=== PATIENT | female | born 1980 | race Caucasian/White ===

== ENCOUNTER 2017-06-03 22:10 | Inpatient (IN) | payer OTHER ==
[~2017-06-03] VITALS: Ht 157.5 cm; Wt 66.2 kg
--- NOTE | ~2017-06-03 | PA ---
Unit #: [id number] #: [id number] Patient: MILTON GONZALEZ [id number] [place] [address] [id number] MR#: [id number] NAME: MILTON GONZALEZ ROOM: P211 Age: 36 Sex: F Admission Date: 06/04/2017 : 1980 Date of Assessment: 06/04/2017 Attending Physician: Gt Brooks M.D. Admitting Physician: Gt Brooks M.D. Primary Care Physician: Primary Care Physician No PSYCHIATRIC ASSESSMENT INFORMANTS The patient reliability, fair informant and chart reliability, good. CHIEF COMPLAINT Alcohol abuse and depression. HISTORY OF PRESENT ILLNESS Ms. Diego is a 36-year-old female, seen on , presented with the above-mentioned complaint. The patient reported feeling sad, depressed, needing help with the alcohol withdrawals. The patient reported wanting help for detox. Reports drinking at least a pint of Tequila in the past 6 to 9 months. The patient denied any suicidal or homicidal ideation or any psychotic symptom. Reported feeling sad, depressed, and anxious. The patient reported currently withdrawal symptom. Scored 18 on CIWA. The patient reports not eating, not sleeping. Reports takes quarter a tablet of Suboxone a day for the past opioid addiction. The patient needed inpatient admission at this time for psychiatric stabilization. The patient reported tobacco use, age of onset 13; alcohol, age of onset 36; and opioid, age of onset 26. The patient reported legal problem, health problem, withdrawal symptom, children's well-being due to alcohol abuse, history of blackout, hepatitis. No history of IV drug use. Currently, reporting depressed mood, nausea, headache, irritability, nervousness, poor appetite, sleep problem, and tremors. PAST PSYCHIATRIC HISTORY Remarkable for history of inpatient detox on 03/02/2017 at [facility]. FAMILY HISTORY AND SOCIAL HISTORY The patient has three sons, good support system. No history of abuse. Legal charges including DUI, thefts, and shoplifting. MEDICAL HISTORY Remarkable for hepatitis C and asthma. Musculoskeletal; muscle strength and tone, no atrophy or abnormal movement. Gait normal. MEDICATION HISTORY Suboxone quarter tablet in the morning. ALLERGIES No known drug allergies. SUBSTANCE ABUSE HISTORY Please see above. Unit #: [id number] #: [id number] Patient: MILTON GOZNALEZ REVIEW OF SYSTEMS HEENT: Eyes, clear. Ears, nose, mouth, and throat; clear. CARDIOVASCULAR: Unremarkable. RESPIRATORY: Unremarkable. GI: Unremarkable. : Unremarkable. SKIN: Unremarkable. LYMPH NODE: Unremarkable. NEUROLOGIC: Unremarkable. ENDOCRINE: Unremarkable. HEMATOLOGIC: Unremarkable. ALLERGIC/IMMUNOLOGIC: Unremarkable. MUSCULOSKELETAL: Muscle strength and tone, no atrophy or abnormal movement. Gait normal. MENTAL STATUS EXAMINATION CONSTITUTIONAL: Measurement of vital signs; temperature 98.7, heart rate 89, respiratory rate 20, and blood pressure 142/95. Height 5 feet 2 inches and weight 146 pounds. GENERAL APPEARANCE: The patient dressed casually. The patient did not show any facial deformity. MUSCULOSKELETAL: Please see above. PSYCHIATRIC EXAMINATION Description of speech; regular rate, normal volume, normal articulation, and coherent. Description of thought process, goal directed. Description of association, intact. Description of abnormal psychotic thinking; the patient denied any hallucinations or delusions, but sad and depressed. Description of the patient's judgment: Concerning everyday activity, poor. Social situation, poor. Concerning psychiatric condition, poor. Complete mental status examination; oriented in time, place, and person. Recent and remote memory, fair. Attention span and concentration, fair. Language, able to name object and repeat phrases. Fund of knowledge, aware of current event and passive vocabulary intact. Mood and affect, sad and dysphoric. Insight and judgment, fair to poor. ASSETS AND LIABILITIES Assets, the patient is articulate and able to take care of her ADL. Liability, history of depression and substance abuse. ADMITTING DIAGNOSES Psychiatric: Alcohol use disorder, severe, F10.20 and major depressive disorder, recurrent, severe, F33.2. Secondary diagnosis: Deferred. Medical diagnoses: Hepatitis C and asthma. Stressors: Psychosocial stressors. PSYCHIATRIC PLAN AND TREATMENT GOAL AND DISCHARGE PLAN 1. Advised to admit the patient on the inpatient unit. Provide safe, supportive, and structured environment. 2. Ordered labs; CBC, CMP, UA, and UDS. 3. Detox protocol and detox monitoring. Started with CIWA protocol and COWS protocol. Advised to discontinue Suboxone. The patient to attend Unit #: [id number] #: [id number] Patient: MILTON GONZALEZ all the programing, group therapy, individual therapy, and chemical dependency group. Treatment goal to attain euthymic mood, gain insight into her problem, and learn coping skills. DISCHARGE PLAN Plan to stabilize the patient and consider followup in outpatient program. ESTIMATED LENGTH OF STAY 3 to 5 days. Dictated by... Gt Brooks M.D. MYRTLE/bautista TD: 06/04/2017 19:09 JOB #: [id number] PSYCHIATRIC ASSESSMENT Page 1 of 1 X Gt Brooks MD X PSYCHIATRIC ASSESSMENT
--- NOTE | ~2017-06-03 | DS ---
Unit #: [id number] #: [id number] Patient: MILTON GONZALEZ [id number] [facility] [address] [place] [address] [id number] MR#: [id number] NAME: MILTON GONZALEZ ROOM: [facility] Age: 36 Sex: F Admission Date: 06/04/2017 : 1980 Discharge Date: 06/06/2017 Attending Physician: Gt Brooks M.D. Primary Care Physician: Primary Care Physician No DISCHARGE SUMMARY REASON FOR ADMISSION Alcohol detox and depression. DIAGNOSTIC STUDIES LABORATORY RESULTS: Unremarkable. HOSPITAL COURSE The patient was admitted to inpatient unit on 06/04/2017 and discharged on 06/06/2017. The patient was treated on the inpatient unit with group therapy and individual therapy. The patient was responsive to treatment. Subsequently, the patient was discharged with a plan to follow up in outpatient program. DISCHARGE MEDICATIONS None. DISCHARGE DIAGNOSES Psychiatric: Alcohol use disorder, severe, F10.20; major depressive disorder, recurrent, severe, F33.2. Secondary diagnosis: Deferred. Medical diagnosis: Hepatitis C and asthma. Stressors: Psychosocial stressors. DISCHARGE INSTRUCTIONS The patient to follow up in outpatient clinic as per social media developer. CONDITION ON DISCHARGE The patient was pleasant and cooperative. Denied any psychotic symptom or any suicidal ideation. PROGNOSIS Guarded. DIET AND ACTIVITY As tolerated. Dictated by... Gt Brooks M.D. Unit #: [id number] #: [id number] Patient: MILTON GONZALEZ SZC/modl TD: 06/08/2017 11:05 JOB #: [id number] DISCHARGE SUMMARY Page 1 of 1 X Gt Brooks MD X DISCHARGE SUMMARY
--- NOTE | ~2017-06-03 | HP ---
Unit #: [id number] #: [id number] Patient: BRANDIE GONZALEZ [id number] [place] [address] [id number] MR#: [id number] NAME: BRANDIE GONZALEZ ROOM: P211 Age: 36 Sex: F Admission Date: 06/04/2017 : 1980 Attending Physician: Gt Brooks M.D. Admitting Physician: Gt Brooks M.D. Primary Care Physician: Primary Care Physician No HISTORY AND PHYSICAL HISTORY OF PRESENT ILLNESS Brandie is a 36 year old admitted to [address] [place] [address] because of her abuse of alcohol. PAST MEDICAL HISTORY 1. Long history of alcohol abuse. 2. Hepatitis C. 3. Asthma. PAST SURGICAL HISTORY 1. Left hip. 2. x3. ALLERGIES No known drug allergies. SOCIAL HISTORY Smokes 1 pack per day. Drinks at least a pint on a daily basis. Admits to a history of opioid abuse. She has been clean for 3 years and has been enrolled and on good terms with a Suboxone clinic for the past 2 years. FAMILY HISTORY Medically noncontributory. REVIEW OF SYSTEMS CONSTITUTIONAL: No fever or chills. HEENT: Denies any sore throat, ear pain or runny nose. CARDIOVASCULAR: Denies chest pain, irregular heart rhythm or palpitations. CHEST: Denies shortness of breath or cough. No hemoptysis. GASTROINTESTINAL: Denies nausea, vomiting, diarrhea or chronic constipation. ENDOCRINE: Denies history of increased thirst or urination. No recent significant weight loss or gain. GENITOURINARY: Denies dysuria, frequency, or hematuria. SKIN: Denies any rashes. HEMATOLOGIC: Denies history of increased bleeding or bruising. MUSCULOSKELETAL: Denies any hot, swollen joints. No generalized muscle pain. NEUROLOGIC: Denies problems with vision or speech. No frequent, severe headaches. No numbness, tingling or weakness in any extremities. Denies loss of bladder or bowel control. CURRENT MEDICATIONS Unit #: [id number] #: [id number] Patient: BRANDIE GONZALEZ 1. Detox protocol. 2. Celexa 20 mg daily. PHYSICAL EXAMINATION GENERAL: Alert, well-nourished, in no apparent distress. VITAL SIGNS: Blood pressure 142/94, heart rate 88, respirations 16, temperature 98.6. WEIGHT: 146. HEIGHT: 5 feet 2 inches. SKIN: Warm and dry without rash or lesion. HEENT: Normocephalic. TMs not viewed. Oral and nasal passages clear. Conjunctivae clear. PERRLA. EOMs intact. NECK: Supple without lymphadenopathy or thyromegaly. HEART: Regular rate and rhythm without murmur. LUNGS: Clear. ABDOMEN: Soft, nontender. : Not done. EXTREMITIES: No evidence of cyanosis, clubbing or edema. Moves all without focal deficit. NEUROLOGICAL: Grossly within normal limits. Cranial Nerves: II: Visual roberts are intact. III, IV AND : Extraocular movements are intact. Pupils are equal, round and reactive to light. V: Facial sensation is grossly normal. VII: Facial movements and expression are normal. VIII: Auditory acuity grossly intact. IX, X: Uvula is midline. Phonation is normal. XI: Patient shrugs shoulders and turns head normally. XII: Tongue protrudes in the midline. Sensory and Motor Function: Sensory and motor sensation is grossly normal. Motor: moves all extremities well. Coordination: Gait is normal. Deep Tendon Reflexes: Intact. IMPRESSION Psychiatric admission. RECOMMENDATIONS PSYCHIATRIC: Per psychiatrist. MEDICAL: See no contraindication to participate in facility's activities. MEDICAL PROGNOSIS Good. MEDICAL CONDITION Stable. Dictated by... Zuly Christian P.A.-C. for Nicole Beatty/tena TD: 06/04/2017 16:08 JOB #: [id number] Unit #: [id number] #: [id number] Patient: BRANDIE GONZALEZ HISTORY AND PHYSICAL Page 1 of 1 X Zuly Christian HISTORY AND PHYSICAL
--- NOTE | ~2017-06-03 | PN ---
Unit #: [id number] #: [id number] Patient: MILTON GONZALEZ [id number] [facility] [address] [place] [address] [id number] MR#: [id number] NAME: MILTON GONZALEZ ROOM: P211 Age: 36 Sex: F Admission Date: 06/04/2017 : 1980 Attending Physician: Gt Brooks M.D. Admitting Physician: Gt Brooks M.D. Primary Care Physician: Primary Care Physician Leanne THAKUR PROGRESS NOTES DATE OF SERVICE 06/05/2017 DISCUSSION Ms. Diego is a 36-year-old female seen on 06/05/2017. Patient interviewed, chart reviewed. Obtained information from nursing staff. Patient compliant and cooperative, withdrawn, isolative, guarded. The patient reports still having withdrawal symptoms, anxious, nervous, withdrawn, flat affect, guarded. The patient's vital signs 98.4, 89, 142, 95. Still having tachycardia. Complete review of systems unremarkable. MENTAL STATUS EXAMINATION General appearance, patient dressed casually. Attention span and concentration fair. Oriented to place and person. Mood and affect labile. Speech monotone. Thought process concrete. Patient denied any thoughts of harming self or others or any psychotic symptoms. Recent and remote memory poor. Insight and judgement poor. DIAGNOSES 1. Alcohol use disorder severe. 2. Mood disorder NOS. ASSESSMENT/PLAN Advise to continue with current medication and therapeutic protocol. If needed consider further adjustment of medication. Dictated by... Nicole Landaverde/clari TD: 06/06/2017 03:22 JOB #: [id number] Unit #: [id number] #: [id number] Patient: MILTON GONZALEZ [facility] PROGRESS NOTES Page 1 of 1 X Gt Brooks MD X PROGRESS NOTE
== END 2017-06-06 10:18 | disposition home or self-care (01) | DRG 897 ==
LOC: P2S 06-04 03:15
PROC: HZ2ZZZZ Detoxification Services for Substance Abuse Treatment (ICD-10-PCS; principal; 2017-06-04)
DX: F10.20 Alcohol dependence, uncomplicated (principal); F33.2 Major depressive disorder, recurrent severe without psychotic features; B19.20 Unspecified viral hepatitis C without hepatic coma; J45.909 Unspecified asthma, uncomplicated
CPT/HCPCS: 86592